=== PATIENT | female | born 1985 | race Caucasian/White ===

== ENCOUNTER 2023-04-10 16:10 | Inpatient (IN) | payer BC, SELFPAY ==
[2023-04-10 15:45] VITALS: BP 115/78; PULSE 89; RESP 16; TEMP 36.6; O2SAT 98
[2023-04-10 15:50] VITALS: O2SAT 98; BMI 23.6
--- NOTE | 2023-04-10 15:56 | ADMGEN ---
This patient, Zuly Phillips, was admitted to [facility] Surg Room 305-01. Patient/family oriented to hospital policies and general routines including ID bracelet, bed and alarms, visiting hours, pain management, procedures, bathroom and other care routines, personal items, smoking policy, room service/diet, and visiting hours. Information on how to activate the Rapid Response Team has been discussed. Patient/Family are encouraged to report perceived risks to care and to ask questions if they do not understand what they are told or what they should do. Pt was direct admit from [facility]. MD and surgery notified.
--- NOTE | 2023-04-10 16:15 | PM.IMHP ---
H&P: HPI History of Present Illness Date/Time: 04/10/23 18:15 Chief Complaint: Cecal diverticulitis. Narrative: This is a healthy 38-year-old female who is being directly admitted to the medical floor for further treatment and evaluation after she was found to have evidence of possible cecal diverticulitis with intramural phlegmon or developing abscess on outpatient CT done for evaluation of right lower abdominal pain. The patient provides the following history. She had an endometrial ablation in 2018 though continues to have monthly menstrual cycles. Over the last 4 months her periods have started to become more heavy and she has an upcoming appointment with Dr. Dutta for that. It is not necessarily unusual for her to have cramping discomfort and a couple of days ago when she developed discomfort in the right lower quadrant she assumed it was related to the same. She also mentions ongoing issues with chronic constipation and she has taken 2 doses of MiraLax in the last couple of days as she was also concerned that perhaps her symptoms were related to constipation. She has passed two, small stools since that time though she continues to have cramping discomfort in the right lower quadrant. Her symptoms are worse with movement and palpation. She has not noticed any significant alleviating factors. She denies associated symptoms and she specifically denies fever, chills, sweats, nausea, vomiting, and dysuria. Last night she slept poorly due to the persistant discomfort and today her symptoms were worse. 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 This prompted a CT scan with results as above. She is being directly admitted for IV antibiotics and surgery consultation. She has no history of diverticulitis and denies personal and family history of inflammatory bowel disease. Review of Systems Review of Systems: Twelve systems were reviewed and are negative except for as per HPI. [facility] Past Medical History Medical History (Updated 04/10/23 @ 22:45 by Tonie Butterfield PA-C) Anxiety Surgical History Surgical History (Updated 04/10/23 @ 16:24 by Tonie Butterfield PA-C) History of section History of endometrial ablation History of tubal ligation Family History Family History Father Diabetes mellitus Hypertension Hypercholesteremia Grandparent Leukemia Grandparent Diabetes mellitus Social History Social History (Updated 04/10/23 @ 18:01 by Tonie Butterfield PA-C) Social History: Surrogate medical decision maker: Juan Phillips, spouse. Code status: Full code. Smoking status: Never smoker Alcohol intake: current Drinks per week: 2 Substance use: never Lack of Transportation: No Lack of Food: Never True Current Housing: I Have Housing Concerned About Future Housing: No Difficulty Paying Gas/Electric Bills: No Difficulty Paying for Meds: No Currently Unemployed: No Education: Decline to Answer Difficulty w/ Childcare or Family Care: No Additional living arrangements comments: Lives with family in [place]. 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 care concerns: No Meds Home Medications and Allergies Home Medications Medication Instructions Recorded Confirmed Type bupropion HCl 150 mg tablet,12 hr 150 mg PO BID 04/10/23 04/10/23 History sustained-release Allergies Allergy/AdvReac Type Severity Reaction Status Date / Time No Known Allergies Allergy Verified 04/10/23 16:05 Exam Narrative: General: Well-developed, nontoxic-appearing female sitting up in bed in no distress. Weight: 66.5 kg. BMI: 23.7. HEENT: PERRL, EOMI. Sclera anicteric. Oral mucosa moist. Neck: Supple. Respiratory: Lungs are clear to auscultation bila
[2023-04-10] MEDS: metroNIDAZOLE 500 MG/ISO 100ML 500 MG/100 ML BAG 100 MG IVPB (17:43)
[2023-04-10] MEDS: SODIUM CHLORIDE 0.9% IV 1,000 ML 100 ML IV CONT (17:46)
[2023-04-10 20:00] VITALS: O2SAT 100
[2023-04-10] MEDS: buPROPion HCL SR (12 HR) 150 MG TAB PO (20:46)
[2023-04-10 21:28] VITALS: BP 110/73; PULSE 72; RESP 14; TEMP 36.4; O2SAT 100
[2023-04-11] MEDS: metroNIDAZOLE 500 MG/ISO 100ML 500 MG/100 ML BAG 100 MG IVPB ×3 (00:33→15:46)
[2023-04-11 06:00] VITALS: BP 113/70; PULSE 79; RESP 14; TEMP 36.5; O2SAT 100
[2023-04-11 06:39] LABS: Hematocrit 37.2 % (37.0-47.0); Hemoglobin 12.1 g/dL (12.0-15.0); Mean Corpuscular HGB Conc 32.5 g/dl (32-36); Mean Corpuscular Hemoglobin 30.7 pg (26-34); Mean Corpuscular Volume 94.4 fl (80-100); Mean Platelet Volume 9.8 fl (7.4-10.4); Platelet Count Result 330 k/mm3 (150-375); Red Blood Count 3.94 M/mm3 (4.2-5.4); Red Cell Distribution Width 11.9 % (11.5-14.5)
[2023-04-11 06:51] LABS: Alanine Aminotransferase 15 U/L (6-35); Albumin Level 3.7 g/dL (3.5-5.1); Alkaline Phosphatase 62 U/L (38-126); Anion Gap 11 mmol/L (8-16); Aspartate Amino Transferase 23 U/L (14-36); Bilirubin,Total 0.7 mg/dL (0.2-1.3); Blood Urea Nitrogen 12 mg/dL (7-17); Calcium 8.5 mg/dL (8.4-10.2); Carbon Dioxide 17 mmol/L (22-30); Chloride 107 mmol/L (98-107); Estimated CRCL calculation 78 ml/min; Estimated Glomerular Filt Rate > 60; Glucose 69 mg/dL (65-110); Potassium 4.1 mmol/L (3.4-5.0); Sodium 135 mmol/L (137-145)
[2023-04-11] MEDS: buPROPion HCL SR (12 HR) 150 MG TAB PO ×2 (09:08→20:39)
[2023-04-11 12:04] LABS: Glucose Point of Care 60 mg/dl (65-105)
[2023-04-11] MEDS: GLUCOSE ORAL GEL 15 GM OF GLUCSE IN 37.5 GM TUBE PO (12:05)
--- NOTE | 2023-04-11 12:48 | PM.IMPN ---
Progress Note: A&P Assessment and Plan (1) Cecal diverticulitis: Code(s): K57.32 - Diverticulitis of large intestine without perforation or abscess without bleeding Status: Acute Assessment and Plan: CT scan showed inflammation of the cecum in the right lower quadrant near the terminal ileum which is nonspecific but may be an area of cecal diverticulitis with intramural phlegmon or developing abscess. She denies history of similar episodes and has no known personal or family history of inflammatory bowel disease. -continue ceftriaxone and metronidazole. -spoke with surgery, will start clear liquid diets -would recommend colonoscopy - Small cluster of lymph nodes in the right lower quadrant most likely related to cecal process though 3 to six-month follow-up CT is recommended. -patient does not have her disc from outside area hospital, spoke with Dr. Rao--no additional images needed at this time (2) Uterine fibroid: Code(s): D25.9 - Leiomyoma of uterus, unspecified Status: Acute Assessment and Plan: Status post endometrial ablation in 2018 however she continues to have monthly menstrual cycles. -Bleeding has been worse the last 4 months. - She has an upcoming appointment with Dr. Dutta. (3) Anxiety: Code(s): F41.9 - Anxiety disorder, unspecified Status: Acute Assessment and Plan: Chronic but controlled. continue home Wellbutrin (4) Hypoglycemia: Code(s): E16.2 - Hypoglycemia, unspecified Status: Acute Assessment and Plan: Patient has been NPO -will order 1 time dose of oral glucose -noted need for dextrose at this time as patient is now going to start clear liquids -spoke with the nurse and will monitor p.r.n. as she does not take any insulin Plan Lovenox for DVT prophylaxis Time Spent With Patient Time with patient: 25 - 35 minutes Subjective Date/time seen: 04/11/23 12:48 Interval history: Pt is a 38-year-old female here for diverticulitis. Patient was seen today and states she is doing well. The pain is less and she has no nausea or vomiting. She has chronic constipation which is unchanged. She denies fevers, chest pain or shortness of breath. Review of Systems Review of Systems: All systems reviewed & are unremarkable except as noted in HPI and below Exam Narrative: General: Well developed well nourished patient in NAD HEENT: normocephalic Neck: supple Neuro: Alert and oriented CV:RRR Resp:CTA Abd: Soft, non distended. Slight pain to palpation to the right lower quadrant. Positive bowel sounds Extremities: No swelling, erythema, or pain to palpation. Objective Data Vital Signs Vital Signs: Vital Signs - 24 hr 04/10/23 15:45 04/10/23 15:50 04/10/23 21:28 Temperature 97.9 F 97.5 F L Pulse Rate 89 72 Respiratory Rate 16 14 Blood Pressure 115/78 110/73 Pulse Oximetry 98 98 100 Oxygen Delivery Room Air 04/10/23 20:00 04/11/23 06:00 Temperature 97.7 F Pulse Rate 79 Respiratory Rate 14 Blood Pressure 113/70 Pulse Oximetry 100 100 Oxygen Delivery Room Air Intake/Output Intake/Output: Intake & Output 04/08/23 04/09/23 04/10/23 04/11/23 23:59 23:59 23:59 23:59 Intake Total 150 1100 Balance 150 1100 Meds/Results Medications: Active Medications Generic Name Dose Route Start Last Admin Trade Name Freq PRN Reason Stop Dose Admin Acetaminophen 650 mg 04/10/23 16:09 Acetaminophen 325 Mg Tablet PO Q4H PRN Mild Pain (1-3) or Fever Hydrocodone Bitart/Acetaminophen 1 tab 04/10/23 16:09 Hydrocodone/Acetaminophen (*Crx) 5-325 Mg Tablet PO Q4H PRN Moderate Pain (4-6) Bupropion HCl 150 mg 04/10/23 21:00 04/11/23 09:08 Bupropion Hcl Sr (12 Hr) 150 Mg Tab PO 150 mg Q12HR J LUIS Administration Dextrose 12.5 gm 04/11/23 11:36 Dextrose 50% 25 Gm/50 Ml Syringe IV PUSH PRN PRN Hypoglycemia Protocol
[2023-04-11 14:00] VITALS: BP 107/74; PULSE 89; RESP 16; TEMP 36.5; O2SAT 100
--- NOTE | 2023-04-11 14:54 | PM.CNGS ---
Assessment and Plan Assessment and plan (1) Cecal diverticulitis: Code(s): K57.32 - Diverticulitis of large intestine without perforation or abscess without bleeding Status: Acute Assessment and Plan: Much improved especially considering she has had less than 24 hours of antibiotic therapy. She is being treated with ceftriaxone and metronidazole. Will continue to monitor labs and clinical exam. Go ahead and start her on clear liquids today. I explained to the patient and her that while this usually does respond to the current treatment, there is the possibility that it could recur or worsen. We would only recommend surgery in the case that this is much worse or repeatedly recurs. I also explained that she would likely need colonoscopy 4 weeks from discharge to exclude the possibility of a neoplasm as the source. All questions were answered. Thank you for asking me to see this patient in consultation. History of Present Illness Consult details Consult date: 04/11/23 Reason for consult: abdominal pain Requesting physician: Tonie Butterfield PA-C Narrative: Patient is a 38-year-old woman who 3 days ago started having some right lower quadrant abdominal pain. 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 She initially thought this was related to menstrual cramps or possibly an ovarian cyst. The pain persisted and she had a CBC. Her white blood cell count was elevated to 12,900. The pain continued to worsen. She had a CT scan as an outpatient of the abdomen pelvis. This showed evidence of potential cecal diverticulitis with phlegmon and possible early intramural abscess. She was admitted to [facility] yesterday afternoon as a direct admission. She has been started on IV antibiotics and has been NPO. Her white blood cell count today is 10,000. She tells me that her pain is much improved. It is nearly gone. She does have a history of chronic constipation. She has never had a pain like this or diverticulitis previously. She is seen now in consultation regarding cecal diverticulitis management. Review of Systems Review of Systems: All systems reviewed & are unremarkable except as noted in HPI and below (HPI and those items noted below) Constitutional: Constitutional: Denies chills and Denies fever(s) Cardiovascular: Cardiovascular: Denies chest pain, Denies diaphoresis, Denies dyspnea and Denies paroxysmal nocturnal dyspnea Respiratory: Respiratory: Denies chest congestion, Denies cough and Denies dyspnea Integumentary/Breasts: Skin/Breast: Denies lesions and Denies rash PMFSH Past Medical History Medical History Anxiety Surgical History Surgical History History of section History of endometrial ablation History of tubal ligation Family History Family History Father Diabetes mellitus Hypertension Hypercholesteremia Grandparent Leukemia Grandparent Diabetes mellitus Social History Social History Social History: Surrogate medical decision maker: Juan Phillips, spouse. Code status: Full code. Smoking status: Never smoker Alcohol intake: current Drinks per week: 2 Substance use: never Lack of Transportation: No Lack of Food: Never True Current Housing: I Have Housing Concerned About Future Housing: No Difficulty Paying Gas/Electric Bills: No Difficulty Paying for Meds: No Currently Unemployed: No Education: Decline to Answer Difficulty w/ Childcare or Family Care: No Additional living arrangements comments: Lives with family in [place]. 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 care concerns: No Meds Home Medications and Allergies Home Medications Medication Instructions
[2023-04-11 16:35] LABS: Glucose Point of Care 93 mg/dl (65-105)
[2023-04-11] MEDS: ACETAMINOPHEN 325 MG TABLET 650 MG PO (21:32)
[2023-04-11 22:00] VITALS: BP 117/77; PULSE 96; RESP 22; TEMP 36.2; O2SAT 100
[2023-04-12] MEDS: metroNIDAZOLE 500 MG/ISO 100ML 500 MG/100 ML BAG 100 MG IVPB ×4 (00:41→23:44)
[2023-04-12 06:00] VITALS: BP 114/81; PULSE 101; RESP 22; TEMP 36.4; O2SAT 99
[2023-04-12 07:29] LABS: Hematocrit 37.7 % (37.0-47.0); Hemoglobin 12.2 g/dL (12.0-15.0); Mean Corpuscular HGB Conc 32.4 g/dl (32-36); Mean Corpuscular Hemoglobin 30.4 pg (26-34); Mean Platelet Volume 9.7 fl (7.4-10.4); Platelet Count Result 352 k/mm3 (150-375); Red Blood Count 4.01 M/mm3 (4.2-5.4); Red Cell Distribution Width 11.9 % (11.5-14.5); White Blood Count 5.7 K/mm3 (4.5-10.0)
[2023-04-12 07:40] LABS: Alanine Aminotransferase 12 U/L (6-35); Albumin Level 3.7 g/dL (3.5-5.1); Alkaline Phosphatase 58 U/L (38-126); Anion Gap 6 mmol/L (8-16); Aspartate Amino Transferase 19 U/L (14-36); Bilirubin,Total 0.6 mg/dL (0.2-1.3); Blood Urea Nitrogen 9 mg/dL (7-17); Carbon Dioxide 22 mmol/L (22-30); Chloride 105 mmol/L (98-107); Estimated CRCL calculation 78 ml/min; Estimated Glomerular Filt Rate > 60; Glucose 101 mg/dL (65-110); Potassium 3.7 mmol/L (3.4-5.0); Sodium 133 mmol/L (137-145)
[2023-04-12] MEDS: buPROPion HCL SR (12 HR) 150 MG TAB PO ×2 (09:09→20:37)
--- NOTE | 2023-04-12 12:22 | PM.PNGS ---
Progress Note: A&P Assessment and Plan (1) Cecal diverticulitis: Code(s): K57.32 - Diverticulitis of large intestine without perforation or abscess without bleeding Status: Acute Assessment and Plan: Improving very well. Patient nearly nontender. Will advance to a low-fiber diet and continue IV antibiotics. Recheck labs and exam tomorrow. If continues to do well can go home tomorrow from my perspective. Subjective Subjective Date/Time Seen: 04/12/23 12:22 Patient reports: feels better, tolerating liquids well, no bowel movement and afebrile Review of Systems Review of Systems: All systems reviewed & are unremarkable except as noted in HPI and below (HPI) Exam Const: General: comfortable, no acute distress, well nourished and thin Orientation/consciousness: patient oriented x3 GI: Inspection: normal to inspection and non-distended GI Palp: Yes Soft to palpation, Yes Tenderness to palpation present (GI) (Minimal right lower quadrant tenderness, much improved), No Guarding due to palpation present (GI), No Hernia present, No Palpable mass present and No Rebound tenderness present Neuro: General: patient oriented x3 and no focal motor deficits Extrem: General: no calf tenderness and no edema Psych: Affect: normal affect Insight: Good insight present (Psych) Judgement: Good judgement present (Psych) Objective Data Vital Signs Vital Signs: Vital Signs - 24 hr 04/11/23 14:00 04/11/23 22:00 04/12/23 06:00 Temperature 36.5 C 36.2 C L 36.4 C L Pulse Rate 89 96 101 H Respiratory Rate 16 22 H 22 H Blood Pressure 107/74 117/77 114/81 Pulse Oximetry 100 100 99 Intake/Output Intake/Output: Intake & Output 04/09/23 04/10/23 04/11/23 04/12/23 23:59 23:59 23:59 23:59 Intake Total 150 2256 1060 Output Total 1600 Balance 350 472 0003 Meds/Results Medications: Active Medications Generic Name Dose Route Start Last Admin Trade Name Freq PRN Reason Stop Dose Admin Acetaminophen 650 mg 04/10/23 16:09 04/11/23 21:32 Acetaminophen 325 Mg Tablet PO 650 mg Q4H PRN Administration Mild Pain (1-3) or Fever Hydrocodone Bitart/Acetaminophen 1 tab 04/10/23 16:09 Hydrocodone/Acetaminophen (*Crx) 5-325 Mg Tablet PO Q4H PRN Moderate Pain (4-6) Bupropion HCl 150 mg 04/10/23 21:00 04/12/23 09:09 Bupropion Hcl Sr (12 Hr) 150 Mg Tab PO 150 mg Q12HR J LUIS Administration Dextrose 12.5 gm 04/11/23 11:36 Dextrose 50% 25 Gm/50 Ml Syringe IV PUSH PRN PRN Hypoglycemia Protocol Enoxaparin Sodium 40 mg 04/12/23 09:00 Enoxaparin 40 Mg/0.4 Ml Syringe SUB-Q DAILY J LUIS Glucagon 1 mg 04/11/23 11:36 Glucagon For Inj 1 Mg Vial IM PRN PRN Hypoglycemia Protocol Glucose 15 gm 04/11/23 11:36 04/11/23 12:05 Glucose Oral Gel 15 Gm Of Glucse In 37.5 Gm Tube PO 15 gm PRN PRN Administration Hypoglycemia Protocol Ceftriaxone Sodium 1 gm in 50 mls @ 100 mls/hr 04/10/23 16:15 04/11/23 12:35 Rocephin 1 Gm/Ns 50 Ml IVPB Infused DAILY@1200 J LUIS Infusion Metronidazole 500 mg in 100 mls @ 100 mls/hr 04/10/23 16:00 04/12/23 10:09 Flagyl 500 Mg/Iso Soln 100 Ml IVPB Infused Q8H J LUIS Infusion Dextrose 1,000 mls @ 100 mls/hr 04/11/23 11:36 Dextrose 5% 1,000 Ml IVPB PRN PRN Hypoglycemia Protocol Morphine Sulfate 2 mg 04/10/23 16:09 Morphine Sulfate (*Crx) 2 Mg/Ml Inj IV PUSH Q4H PRN Pain Rated 7-10 Labs Labs: Laboratory Results - last 24 hr 04/11/23 04/12/23 16:30 06:55 WBC 5.7 RBC 4.01 L Hgb 12.2 Hct 37.7 MCV 94.0 MCH 30.4 MCHC 32.4 RDW 11.9 Plt Count 352 MPV 9.7 Sodium 133 L Potassium 3.7 Chloride 105 Carbon Dioxide 22 Anion Gap 6 L BUN 9 Creatinine 0.80 Estim Creat Clear Calc 78 Estimated GFR > 60 Glucose 101 POC Capillary Glucose 93 Calcium 9.0 Total Bilirubin 0.6 AST 19 ALT
[2023-04-12 14:00] VITALS: BP 111/83; PULSE 87; RESP 16; TEMP 36.5; O2SAT 99
--- NOTE | 2023-04-12 14:07 | PM.IMPN ---
Progress Note: A&P Assessment and Plan (1) Cecal diverticulitis: Code(s): K57.32 - Diverticulitis of large intestine without perforation or abscess without bleeding Status: Acute Assessment and Plan: CT scan showed inflammation of the cecum in the right lower quadrant near the terminal ileum which is nonspecific but may be an area of cecal diverticulitis with intramural phlegmon or developing abscess. She denies history of similar episodes and has no known personal or family history of inflammatory bowel disease. -continue ceftriaxone and metronidazole, will transition to PO tomorrow in anticipation for d/c -advanced from clears to low fiber diet -recommend colonoscopy in 4 weeks, Jalen to help refer to GI - Small cluster of lymph nodes in the right lower quadrant most likely related to cecal process though 3 to six-month follow-up CT is recommended. -patient does not have her disc from outside area hospital, spoke with Dr. Rao--no additional images needed at this time (2) Uterine fibroid: Code(s): D25.9 - Leiomyoma of uterus, unspecified Status: Acute Assessment and Plan: Status post endometrial ablation in 2018 however she continues to have monthly menstrual cycles. -Bleeding has been worse the last 4 months. -She has an upcoming appointment with Dr. Dutta. (3) Anxiety: Code(s): F41.9 - Anxiety disorder, unspecified Status: Acute Assessment and Plan: Chronic but controlled. continue home Wellbutrin (4) Hypoglycemia: Code(s): E16.2 - Hypoglycemia, unspecified Status: Acute Assessment and Plan: resolved with diet intake Plan Lovenox for DVT prophylaxis Subjective Date/time seen: 04/12/23 14:07 Interval history: Pt is a 38 YO female here for diverticulitis. Patient is sitting up in bed, reports she is comfortable. She has been tolerating clears and felt hungry this morning. Advanced diet to low fiber and will see how she tolerates. She has no nausea or vomiting. She has chronic constipation which is unchanged. She denies fevers, chest pain or shortness of breath. Would have sent her home with PO Flagyl and Augmentin today, but will see how she does overnight on diet changes and repeat labs in am per SURG. Review of Systems Review of Systems: All systems reviewed & are unremarkable except as noted in HPI and below Exam Narrative: General: Well developed well nourished patient in NAD HEENT: normocephalic, EOM intact and PERRLA Neck: supple, no masses or lymph nodes palp Neuro: Alert and oriented x3. no focal deficits CV:RRR Resp:clear and present in all lobes Abd: Soft, non distended. Slight pain to palpation to the right lower quadrant. Positive bowel sounds Extremities: No swelling, erythema, or pain to palpation. Objective Data Vital Signs Vital Signs: Vital Signs - 24 hr 04/11/23 22:00 04/12/23 06:00 Temperature 97.1 F L 97.5 F L Pulse Rate 96 101 H Respiratory Rate 22 H 22 H Blood Pressure 117/77 114/81 Pulse Oximetry 100 99 Intake/Output Intake/Output: Intake & Output 04/09/23 04/10/23 04/11/23 04/12/23 23:59 23:59 23:59 23:59 Intake Total 150 2256 1300 Output Total 1600 Balance 581 391 1410 Meds/Results Medications: Active Medications Generic Name Dose Route Start Last Admin Trade Name Freq PRN Reason Stop Dose Admin Acetaminophen 650 mg 04/10/23 16:09 04/11/23 21:32 Acetaminophen 325 Mg Tablet PO 650 mg Q4H PRN Administration Mild Pain (1-3) or Fever Hydrocodone Bitart/Acetaminophen 1 tab 04/10/23 16:09 Hydrocodone/Acetaminophen (*Crx) 5-325 Mg Tablet PO Q4H PRN Moderate Pain (4-6) Bupropion HCl 150 mg 04/10/23 21:00 04/12/23 09:09 Bupropion Hcl Sr (12 Hr) 150 Mg Tab PO 150 mg Q12HR J LUIS Administration Dextrose 12.5 gm 04/11/23 11:36 Dextrose 50% 25 Gm/50 Ml Syringe IV PUSH PRN PRN Hypoglycemia
[2023-04-12 20:00] VITALS: O2SAT 99
[2023-04-12 22:00] VITALS: BP 108/83; PULSE 76; RESP 20; TEMP 36; O2SAT 99
[2023-04-13 06:00] VITALS: BP 111/80; PULSE 89; RESP 20; TEMP 36.4; O2SAT 99
[2023-04-13 06:47] LABS: Hematocrit 38.3 % (37.0-47.0); Hemoglobin 12.3 g/dL (12.0-15.0); Mean Corpuscular HGB Conc 32.1 g/dl (32-36); Mean Corpuscular Hemoglobin 30.1 pg (26-34); Mean Corpuscular Volume 93.9 fl (80-100); Mean Platelet Volume 9.8 fl (7.4-10.4); Platelet Count Result 367 k/mm3 (150-375); Red Blood Count 4.08 M/mm3 (4.2-5.4); Red Cell Distribution Width 11.9 % (11.5-14.5); White Blood Count 5.9 K/mm3 (4.5-10.0)
[2023-04-13] MEDS: metroNIDAZOLE 500 MG/ISO 100ML 500 MG/100 ML BAG 100 MG IVPB (09:37)
[2023-04-13] MEDS: buPROPion HCL SR (12 HR) 150 MG TAB PO (09:37)
--- NOTE | 2023-04-13 10:15 | PM.PNGS ---
Progress Note: A&P Assessment and Plan (1) Cecal diverticulitis: Code(s): K57.32 - Diverticulitis of large intestine without perforation or abscess without bleeding Status: Acute Assessment and Plan: Continues to improve. No abdominal pain or tenderness this morning. Okay from our standpoint to discharge the patient on a low fiber diet and transition to oral antibiotics for another 5 days. Follow-up with Dr. Rao in 2 weeks. Plan I have discussed the patient's case and plan of care with Dr. Rao. Subjective Subjective Date/Time Seen: 04/13/23 10:15 Patient reports: tolerating a regular diet, flatus, bowel movement and afebrile Interval history: This is a 38-year-old who was admitted for cecal diverticulitis. She has been on IV antibiotics and her diet has been advanced to low-fiber. Chart reviewed. Seen this morning and doing well. Denies any abdominal pain at this time. Denies any issues overnight. No nausea or vomiting. Tolerating a diet and having bowel movements. Exam Const: General: comfortable and awake GI: Inspection: non-distended GI Palp: Yes Soft to palpation, No Tenderness to palpation present (GI), No Guarding due to palpation present (GI) and No Rebound tenderness present Auscultation: normal bowel sounds Objective Data Vital Signs Vital Signs: Vital Signs - 24 hr 04/12/23 14:00 04/12/23 22:00 04/12/23 20:00 Temperature 97.7 F 96.8 F L Pulse Rate 87 76 Respiratory Rate 16 20 Blood Pressure 111/83 108/83 Pulse Oximetry 99 99 99 Oxygen Delivery Room Air 04/13/23 06:00 04/13/23 08:00 Temperature 97.5 F L Pulse Rate 89 Respiratory Rate 20 Blood Pressure 111/80 Pulse Oximetry 99 Oxygen Delivery Room Air Intake/Output Intake/Output: Intake & Output 04/10/23 04/11/23 04/12/23 04/13/23 23:59 23:59 23:59 23:59 Intake Total 150 2256 1690 500 Output Total 1600 Balance 229 533 8840 500 Meds/Results Medications: Active Medications Generic Name Dose Route Start Last Admin Trade Name Freq PRN Reason Stop Dose Admin Acetaminophen 650 mg 04/10/23 16:09 04/11/23 21:32 Acetaminophen 325 Mg Tablet PO 650 mg Q4H PRN Administration Mild Pain (1-3) or Fever Hydrocodone Bitart/Acetaminophen 1 tab 04/10/23 16:09 Hydrocodone/Acetaminophen (*Crx) 5-325 Mg Tablet PO Q4H PRN Moderate Pain (4-6) Bupropion HCl 150 mg 04/10/23 21:00 04/13/23 09:37 Bupropion Hcl Sr (12 Hr) 150 Mg Tab PO 150 mg Q12HR J LUIS Administration Dextrose 12.5 gm 04/11/23 11:36 Dextrose 50% 25 Gm/50 Ml Syringe IV PUSH PRN PRN Hypoglycemia Protocol Enoxaparin Sodium 40 mg 04/12/23 09:00 04/13/23 09:52 Enoxaparin 40 Mg/0.4 Ml Syringe SUB-Q Not Given DAILY J LUIS Glucagon 1 mg 04/11/23 11:36 Glucagon For Inj 1 Mg Vial IM PRN PRN Hypoglycemia Protocol Glucose 15 gm 04/11/23 11:36 04/11/23 12:05 Glucose Oral Gel 15 Gm Of Glucse In 37.5 Gm Tube PO 15 gm PRN PRN Administration Hypoglycemia Protocol Ceftriaxone Sodium 1 gm in 50 mls @ 100 mls/hr 04/10/23 16:15 04/12/23 13:11 Rocephin 1 Gm/Ns 50 Ml IVPB Infused DAILY@1200 J LUIS Infusion Metronidazole 500 mg in 100 mls @ 100 mls/hr 04/10/23 16:00 04/13/23 09:37 Flagyl 500 Mg/Iso Soln 100 Ml IVPB 100 mls/hr Q8H J LUIS Administration Dextrose 1,000 mls @ 100 mls/hr 04/11/23 11:36 Dextrose 5% 1,000 Ml IVPB PRN PRN Hypoglycemia Protocol Morphine Sulfate 2 mg 04/10/23 16:09 Morphine Sulfate (*Crx) 2 Mg/Ml Inj IV PUSH Q4H PRN Pain Rated 7-10 Labs Labs: Laboratory Results - last 24 hr 04/13/23 06:21 WBC 5.9 RBC 4.08 L Hgb 12.3 Hct 38.3 MCV 93.9 MCH 30.1 MCHC 32.1 RDW 11.9 Plt Count 367 MPV 9.8 Sodium Cancelled Potassium Cancelled Chloride Cancelled Carbon Dioxide Cancelled Anion Gap Cancelled BUN Cancelled Creatinine Cancelled Estim Creat Cl
--- NOTE | 2023-04-13 10:35 | PM.DS ---
DS: Admitting Diagnosis Discharge Date 04/13/23 Admitting Diagnosis anxiety, abdominal pain DS: Discharge Diagnosis Discharge Diagnosis (1) Cecal diverticulitis: Code(s): K57.32 - Diverticulitis of large intestine without perforation or abscess without bleeding Status: Acute Assessment and Plan: CT scan showed inflammation of the cecum in the right lower quadrant near the terminal ileum which is nonspecific but may be an area of cecal diverticulitis with intramural phlegmon or developing abscess. She denies history of similar episodes and has no known personal or family history of inflammatory bowel disease. -continue ceftriaxone and metronidazole, will transition to PO tomorrow in anticipation for d/c -tolerating low fiber diet, will go home on low fiber diet recommendations -recommend colonoscopy in 4 weeks, Jalen to help refer to GI - Small cluster of lymph nodes in the right lower quadrant most likely related to cecal process though 3 to six-month follow-up CT is recommended. -patient does not have her disc from outside area hospital, spoke with Dr. Rao--no additional images needed at this time (2) Uterine fibroid: Code(s): D25.9 - Leiomyoma of uterus, unspecified Status: Acute Assessment and Plan: Status post endometrial ablation in 2018 however she continues to have monthly menstrual cycles. -Bleeding has been worse the last 4 months. -She has an upcoming appointment with Dr. Dutta. (3) Anxiety: Code(s): F41.9 - Anxiety disorder, unspecified Status: Acute Assessment and Plan: Chronic but controlled. continue home Wellbutrin (4) Hypoglycemia: Code(s): E16.2 - Hypoglycemia, unspecified Status: Acute Assessment and Plan: resolved with diet intake Plan Lovenox for DVT prophylaxis DS: Summary Hospital Course Reason for hospitalization: abdominal pain Hospital Course: Healthy 38 YO female admitted further treatment and evaluation after she was found to have evidence of possible cecal diverticulitis with intramural phlegmon or developing abscess on outpatient CT done for evaluation of right lower abdominal pain. The patient provides the following history. She had an endometrial ablation in 2018 though continues to have monthly menstrual cycles. Over the last 4 months her periods have started to become more heavy and she has an upcoming appointment with Dr. Dutta for that. It is not necessarily unusual for her to have cramping discomfort and a couple of days ago when she developed discomfort in the right lower quadrant she assumed it was related to the same. She also mentions ongoing issues with chronic constipation and she has taken 2 doses of MiraLax in the last couple of days as she was also concerned that perhaps her symptoms were related to constipation. She has passed two, small stools since that time though she continues to have cramping discomfort in the right lower quadrant. Her symptoms are worse with movement and palpation. She was admitted for IV antibiotics and surgery consultation. She has no history of diverticulitis and denies personal and family history of inflammatory bowel disease. Today patient is sitting up in bed, reports she is comfortable without pain. She has been tolerating low fiber diet with no issues. She has no nausea or vomiting.? She has chronic constipation which is unchanged.? She denies fevers, chest pain or shortness of breath. Will send her home PO Flagyl and Augmentin today, she knows to follow up in [address] Rao and in 4 weeks for colonoscopy with GI. Status at Discharge Functional status at discharge: independent ambulation Overall status at discharge: patient is back to baseline Time Spent with Patient Time attestation: Total time spent providing and/or coordinating discharge services: Exam Narrative: General: Well developed well nourished patient in NAD HEENT: fuadocepBecky alcantara
== END 2023-04-13 11:00 | disposition home or self-care (01) | DRG 392 ==
PROVIDERS: Physician Assistant; Surgery; Admitting Provider Internal Medicine; Visit Provider Nurse Practitioner
DX: K57.20 Diverticulitis of large intestine with perforation and abscess without bleeding (principal); D25.9 Leiomyoma of uterus, unspecified; F41.9 Anxiety disorder, unspecified; E16.2 Hypoglycemia, unspecified; K59.00 Constipation, unspecified
CPT/HCPCS: 36415; 80048; 80053; 82948; 83735; 85027; 96361; 96365; 96366; 96367; A9270; G0378; G0379; J0696; J1650; J1836; J7030

== ENCOUNTER 2023-06-02 02:18 | Day surgery (SDC) | payer BC, SELFPAY ==
[2023-05-14 13:53] VITALS: BMI 23.4
--- NOTE | 2023-05-29 10:43 | SUR.PREOP ---
Patient called regarding upcoming procedure. Message left on pt's voicemail regarding appointment times.
[2023-06-02 11:09] VITALS: BP 113/80; PULSE 83; RESP 16; TEMP 36.6; O2SAT 100
[2023-06-02] MEDS: LACTATED RINGERS 1,000 ML 150 ML IV CONT (11:20)
--- NOTE | 2023-06-02 11:28 | P.PNAN_ITS ---
Anes - Initial Pre Proc Eval Procedure: Operation Date: 06/02/23 12:30 Proposed Procedures p Colonoscopy - Armando Lau MD Date/Time: 06/02/23 11:28 Surgeon: Armando Lau MD Pre Op Diagnosis: Cecal Diverticulitis Patient Data Age: 38 Gender: F Height: 1.68 m Weight: 65.8 kg Last Vital Signs Temp 36.6 C 06/02/23 11:09 Pulse 83 06/02/23 11:09 Resp 16 06/02/23 11:09 BP 113/80 06/02/23 11:09 Pulse Ox 100 06/02/23 11:09 O2 Del Method Room Air 06/02/23 11:09 Allergies Allergy/AdvReac Type Severity Reaction Status Date / Time No Known Allergies Allergy Verified 06/02/23 11:08 Home Medications Medication Instructions Recorded Confirmed Type bupropion HCl 150 mg tablet,12 hr 150 mg PO BID 04/10/23 05/14/23 History sustained-release Patient hx anesthesia problems: none Family hx anesthesia problems: none Results Review: All pre-operative results and documents have been reviewed as part of the pre- operative evaluation. [facility] Past Medical History Medical History Anxiety Surgical History Surgical History History of section History of endometrial ablation History of tubal ligation Family History Family History Father Diabetes mellitus Hypertension Hypercholesteremia Grandparent Leukemia Grandparent Diabetes mellitus Social History Social History Social History: Surrogate medical decision maker: Juan Alan, spouse. Code status: Full code. Smoking status: Never smoker Alcohol intake: current Drinks per week: 2 Substance use: never Substance use type: does not use Lack of Transportation: No Lack of Food: Never True Current Housing: I Have Housing Concerned About Future Housing: No Difficulty Paying Gas/Electric Bills: No Difficulty Paying for Meds: No Currently Unemployed: No Education: Decline to Answer Difficulty w/ Childcare or Family Care: No Living arrangements: with family Additional living arrangements comments: Lives with family in [place]. 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 care concerns: No Anes - Eval Final PreProcedure Day of Procedure 06/02/23 11:28 Patient weight: normal Heart: regular rate and rhythm Lungs: clear to auscultation and normal air movement Airway: Mallampati scale class II Neurological: alert and oriented Last oral intake: >/= 8 hours ASA classification: II Emergent: no Anesthetic plan: proceed Anesthesia type and monitoring: general GIVS and standard monitoring Results Review: All pre-operative results and documents have been reviewed as part of the pre-operative evaluation. Informed Consent: The patient's anesthetic plan and its attendant risks and benefits were discussed with the patient/family/POA. Questions were solicited and answers provided to the satisfaction of the patient/family/POA.
--- NOTE | 2023-06-02 12:18 | PM.HPGS ---
History of Present Illness History of Present Illness Consent: Risks, benefits, and alternatives have been discussed and questions answered. Patient agrees to proceed with procedure. Chief complaint: Cecal Diverticulitis Narrative: Zuly Phillips is a 38 year old female with cecal diverticulitis treated medically, never had colonoscopy Review of Systems Constitutional: Constitutional: Denies headache(s) and Denies weakness Eyes: Eyes: Denies blurry vision ENT: Reports Normal hearing present, Denies headache(s) and Denies neck pain Cardiovascular: Cardiovascular: Denies chest pain and Denies dyspnea Respiratory: Respiratory: Denies dyspnea Gastrointestinal: Gastrointestinal: Reports no additional gastrointestinal complaints Genitourinary: Genitourinary: Denies dysuria Musculoskeletal: Musculoskeletal: Denies neck pain Integumentary/Breasts: Skin/Breast: Denies dry skin Neurologic: Reports Normal hearing present, Denies headache(s) and Denies weakness Psychiatric: Psychiatric: Denies anxiety Endocrine: Endocrine: Denies change in body appearance Hematologic/Lymphatic: Hematologic/Lymphatic: Denies easy bleeding Allergic/Immunologic: Allergic/Immunologic: Denies urticaria PMFSH Past Medical History Medical History Anxiety Surgical History Surgical History History of section History of endometrial ablation History of tubal ligation Family History Family History Father Diabetes mellitus Hypertension Hypercholesteremia Grandparent Leukemia Grandparent Diabetes mellitus Social History Social History Social History: Surrogate medical decision maker: Juan Phillips, spouse. Code status: Full code. Smoking status: Never smoker Alcohol intake: current Drinks per week: 2 Substance use: never Substance use type: does not use Lack of Transportation: No Lack of Food: Never True Current Housing: I Have Housing Concerned About Future Housing: No Difficulty Paying Gas/Electric Bills: No Difficulty Paying for Meds: No Currently Unemployed: No Education: Decline to Answer Difficulty w/ Childcare or Family Care: No Living arrangements: with family Additional living arrangements comments: Lives with family in [place]. 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 care concerns: No Meds Home Medications and Allergies Home Medications Medication Instructions Recorded Confirmed Type bupropion HCl 150 mg tablet,12 hr 150 mg PO BID 04/10/23 05/14/23 History sustained-release Allergies Allergy/AdvReac Type Severity Reaction Status Date / Time No Known Allergies Allergy Verified 06/02/23 11:08 Vital Signs Vital Signs - 24 hr 06/02/23 11:09 Temperature 97.8 F Pulse Rate 83 Respiratory Rate 16 Blood Pressure 113/80 Pulse Oximetry 100 Oxygen Delivery Room Air Exam Const: General: comfortable and no acute distress HENMT: Face/Nose/Sinus: Normal nares present Eyes: General: appearance normal, both eyes and all related structures Neck: Neck: no JVD Resp: Auscultation: clear to auscultation bilaterally Cardio: Rate: regular rate Rhythm: regular rhythm GI: Inspection: non-distended GI Palp: Yes Soft to palpation Skin: General skin exam: normal color Neuro: General: gait normal Speech: normal speech Extrem: General: normal to inspection Psych: Mental Status: mental status grossly normal Assessment and Plan Assessment and plan (1) Cecal diverticulitis: Code(s): K57.32 - Diverticulitis of large intestine without perforation or abscess without bleeding Status: Acute Assessment and Plan: colonoscopy
[2023-06-02 12:35] VITALS: BP 98/67; PULSE 68; RESP 22; O2SAT 100
[2023-06-02 12:45] VITALS: BP 104/72; PULSE 59; RESP 15; O2SAT 100
[2023-06-02 12:55] VITALS: BP 108/81; PULSE 62; RESP 15; O2SAT 100
== END 2023-06-02 13:00 | disposition home or self-care (01) ==
PROVIDERS: Visit Provider Internal Medicine Gastroenterology
PROC: 0DJD8ZZ Inspection of Lower Intestinal Tract, Via Natural or Artificial Opening Endoscopic (ICD-10-PCS; CPT 45378; principal; 2023-06-02 12:30)
DX: D12.4 Benign neoplasm of descending colon (principal); K57.30 Diverticulosis of large intestine without perforation or abscess without bleeding; F41.9 Anxiety disorder, unspecified; F10.90 Alcohol use, unspecified, uncomplicated
CPT/HCPCS: 45385; 88305; J2704; J7120

== ENCOUNTER 2024-05-17 14:27 | Outpatient (CLI) | payer BC, SELFPAY | END 2024-05-17 14:28 | disposition home or self-care (01) | PROVIDERS: Visit Provider Obstetrics & Gynecology | DX: D21.9 Benign neoplasm of connective and other soft tissue, unspecified (principal) | CPT/HCPCS: 36415; 86850; 86900; 86901 ==

== ENCOUNTER 2024-05-20 00:35 | Day surgery (SDC) | payer BC, SELFPAY ==
[2024-05-09 14:23] VITALS: BMI 23.9
--- NOTE | 2024-05-09 14:39 | SUR.PREOP ---
Report to the Outpatient Waiting Room, entrance under the green pavilion located off [facility], at time 6:00AM on date 05/20/2024. Planned Procedure Time:7:30AM.? Time changes happen often and if your time is changed the preop area will call you the afternoon before. - You and your visitor will be asked to self-screen and do not enter if you have any COVID symptoms. Please call surgeon if you need to reschedule. - A mask is optional within the hospital at this time. Patients may have clear liquids (water, carbonated beverages, clear teas, apple juice) until 3 hours prior to surgery with a maximum of 20 ounces. - No food from midnight until time of surgery and no smoking. This includes no chewing gum, candy or mints. - Infants may have breast milk until 4 hours before surgery, formula 6 hours prior to surgery. - Children will be allowed to drink immediately following surgery.? If applicable, please bring a bottle or sippy cup to assist with drinking. Juice, water, soda, and popsicles are readily available.? For infants on formula, please bring formula the day of surgery.? Pacifiers are allowed. Take only the following medications with a SIP of water on the morning of surgery: WELLBUTRIN DO NOT STOP ANY OF YOUR OTHER PRESCRIPTION MEDICATIONS PRIOR TO SURGERY EXCEPT THE FOLLOWING Medications to discontinue per physician MULTI VITAMIN- 3 DAYS Date to take last dose 05/17/2024 Please no make-up, nail montenegrin, hairspray, perfume, deodorant, or body powder the day of surgery.? No jewelry (including any body piercings) or valuables the day of surgery, leave them at home.? Please take a shower or bath the night before, or the morning of, surgery with an antibacterial soap.? Wear comfortable, loose fitting clothing.? Children are encouraged to wear pajamas. - Jewelry must be removed prior to entering the operating room.? Rings and piercings that are not removed may be cut off. - The hospital will not accept responsibility for valuables.? - Please leave all valuables, including medications, at home the day of surgery. If you are going home after surgery, a licensed front load trash truck driver must drive you home.? - NO public transportation without another adult if you receive anesthesia. - We recommend that an adult stay with you for 24 hours following discharge. - We also recommend that you do not drive, make important decision, drink alcoholic beverages, or take any drugs that were not prescribed by your health care provider for at least 24 hours after your discharge time. For Pediatric surgeries, we recommend two adults accompany the child home. Follow any additional instructions given to you from your surgeon. Telephone instructions given to ____PATIENT and asked if any additional questions and then verbalized understanding. Patient advised to call surgeon office or pre surgery nurse liaison [phone] if any additional questions.
[2024-05-20] VITALS (9 sets, daily range): BP systolic 94–121; BP diastolic 61–73; PULSE 73–110; RESP 12–99; TEMP 36.2–37.2; O2SAT 96–100
[2024-05-20] MEDS: LACTATED RINGERS 1,000 ML 30 ML IV CONT ×2 (06:45→10:40)
[2024-05-20] MEDS: KETOROLAC 15 MG/ML VIAL (*BKC) IV PUSH (07:30)
[2024-05-20] MEDS: ACETAMINOPHEN 500 MG TABLET 1000 MG PO ×3 (07:30→18:50)
--- NOTE | 2024-05-20 07:44 | PM.IMHP ---
H&P: HPI History of Present Illness Date/Time: 05/20/24 07:44 Chief Complaint: Heavy periods Narrative: 39 y/o witih menometrorrhagia and a fibroid uterus. She has menses every 22 days with painful, heavy flow. She has had a tubal ligation. She has had an endometrial ablation, which initially helped, but periods have gradually gotten heavier. She desires definitive management. Review of Systems Review of Systems: All systems reviewed & are unremarkable except as noted in HPI and below PMFSH Past Medical History Medical History (Updated 05/20/24 @ 07:47 by Alan De Jesus MD) Anxiety Uterine fibroid Surgical History Surgical History History of section History of endometrial ablation History of tubal ligation Family History Family History Father Diabetes mellitus Hypertension Hypercholesteremia Grandparent Leukemia Grandparent Diabetes mellitus Social History Social History Social History: Surrogate medical decision maker: Juan Phillips, spouse. Code status: Full code. Smoking status: Never smoker Alcohol intake: current Drinks per week: 2 Alcohol use details: 2 drinks every couple weeks Substance use: never Substance use type: does not use Lack of Transportation: No Lack of Food: Never True Current Housing: I Have Housing Concerned About Future Housing: No Difficulty Paying Gas/Electric Bills: No Difficulty Paying for Meds: No Currently Unemployed: No Education: Decline to Answer Difficulty w/ Childcare or Family Care: No Living arrangements: with family Additional living arrangements comments: Lives with family in [place]. 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 Neck: Thyroid: thyroid normal Lymphatic: no lymphadenopathy noted (in neck, axilla or inguinal nodes) Resp: Effort & Inspection: normal respiratory effort Auscultation: clear to auscultation bilaterally Cardio: Rate: regular rate Rhythm: regular rhythm Heart sounds: S1 normal heart sound present and S2 normal heart sound present GI: Other: ABD: Soft, nontender, nondistended. No guarding or rebound tenderness. No hepatosplenomegaly. : General: Yes no CVA tenderness Other: External genitalia: normal female hair distribution, without lesion. Urethral meatus: no lesion, non prolapsed. Bladder: no mass, nontender Vagina: well-estrogenized, without lesion or discharge. No cystocele or rectocele. Cervix: no lesion or discharge. Uterus: small, anteverted, freely mobile, nontender Adnexa: no mass or tenderness. Anus/perineum: no lesions, nontender Back/Spine/Pelvis: Back: no CVA tenderness Skin: General skin exam: normal color and no rashes or lesions noted Neuro: General: patient oriented x3 Extrem: Other: Extremities: nontender with no edema Psych: Mental Status: mental status grossly normal Affect: normal affect Assessment and Plan Assessment and plan (1) Menometrorrhagia: Code(s): N92.1 - Excessive and frequent menstruation with irregular cycle Status: Acute Assessment and Plan: A: Symptomatic fibroid uterus, refractory to conservative management. P: We have reviewed medical as well as surgical approaches, and she desires definitive management with hysterectomy. Specifically, I have offered her robotic assisted total vaginal hysterectomy with bilateral salpingectomies. She understands hysterectomy will render her permanently sterile. She understands risks of surgery to include risks of anesthesia, risks of pain, infection, bleeding, blood products, thromboembolic phenomena and damage to adjacent structures such as bowel, bladder, ureters, blood vessels and nerves. She understands all these risks and elects to proceed with surgery. (2) Dysmenorrhea: Code(s): N94.6 - Dysmenorrhea, unspecified Status: Acute (3) Uterine fibroid: Code(s): D25.9 - Leiomyoma of uterus, unspecified Status: Acute
--- NOTE | 2024-05-20 07:49 | WPDHPUPDATE1 ---
History and Physical Update Update Date/Time: 05/20/24 07:49 History and Physical has been reviewed, including an updated exam of the patient. There are NO changes in the patient's condition. Risks, benefits, and alternatives have been discussed and questions answered. Patient agrees to proceed with procedure.
--- NOTE | 2024-05-20 08:01 | WPDANESEPPF ---
Anes - Initial Pre Proc Eval Procedure: Operation Date: 05/20/24 07:30 Proposed Procedures p Robotic Assisted Total Vaginal Hysterectomy with Bilateral Salpingectomy - Alan De Jesus MD Date/Time: 05/20/24 08:01 Surgeon: Alan De Jesus MD Pre Op Diagnosis: heavy excessive bleeding, fibroids, Patient Data Age: 39 Gender: F Height: 1.68 m Weight: 67.27 kg Allergies Allergy/AdvReac Type Severity Reaction Status Date / Time No Known Allergies Allergy Verified 05/09/24 14:22 Home Medications Medication Instructions Recorded Confirmed Type bupropion HCl 150 mg tablet,12 hr 150 mg PO BID 04/10/23 05/09/24 History sustained-release Adult One Daily Multivitamin See Rx Instructions .Route .COMPLEX 05/09/24 05/09/24 History Patient hx anesthesia problems: none Family hx anesthesia problems: none Results Review: All pre-operative results and documents have been reviewed as part of the pre-operative evaluation. [facility] Past Medical History Medical History Anxiety Uterine fibroid Surgical History Surgical History History of section History of endometrial ablation History of tubal ligation Family History Family History Father Diabetes mellitus Hypertension Hypercholesteremia Grandparent Leukemia Grandparent Diabetes mellitus Social History Social History Social History: Surrogate medical decision maker: Juan Phillips, spouse. Code status: Full code. Smoking status: Never smoker Alcohol intake: current Drinks per week: 2 Alcohol use details: 2 drinks every couple weeks Substance use: never Substance use type: does not use Lack of Transportation: No Lack of Food: Never True Current Housing: I Have Housing Concerned About Future Housing: No Difficulty Paying Gas/Electric Bills: No Difficulty Paying for Meds: No Currently Unemployed: No Education: Decline to Answer Difficulty w/ Childcare or Family Care: No Living arrangements: with family Additional living arrangements comments: Lives with family in [place]. 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 Informed Consent: The patient's anesthetic plan and its attendant risks and benefits were discussed with the patient/family/POA. Questions were solicited and answers provided to the satisfaction of the patient/family/POA.
[2024-05-20] MEDS: ceFAZolin 2 GM/D5W 50 ML 2 GM/50 ML BAG IVPB (09:40)
--- NOTE | 2024-05-20 10:21 | W.PM.PROC2 ---
Procedure Note - Detailed Date of Procedure 05/20/24 Pre-op Diagnosis Menometrorrhagia Fibroid uterus Post-op Diagnosis Same Procedure Performed Robotic assisted total vaginal hysterectomy with bilateral salpingectomies Surgeon Alan De Jesus MD Anesthesia General Findings Bilateral Fallopian tubes with evidence of prior tubal ligation. Uterus enlarged. Otherwise, unremarkable uterus, tubes and ovaries, anterior and posterior cul-de-sac, and bilateral uterosacral and round ligaments. Description of Procedure The patient was taken to the operating room where general endotracheal anesthesia was administered. She was prepared and draped in the usual sterile fashion in the dorsal lithotomy position. The bladder was drained with Olsen catheter. The cervix was visualized and the anterior lip was grasped using a single-tooth tenaculum. The cervix was gently dilated using Hegar dilators. The MINI 2 uterine manipulator was then placed and the tenaculum was removed. Gloves were changed and attention was turned to the abdomen. A supraumbilical skin incision was made with the scalpel. The Veress needle was advanced and pneumoperitoneum was administered using carbon dioxide gas. The bladeless trocar was then advanced. Intraperitoneal placement was confirmed using the laparoscope. Lateral ports and an administrative assistant office manager port were all placed using bladeless trocars under direct laparoscopic visualization. She was placed in Trendelenburg position and the patient cart was docked. I assumed the console. The ureters were visualized bilaterally. The round ligament on the right was divided. The tube was dissected off the ovary. The uteroovarian ligament was divided. The broad ligament was divided, skeletonizing the uterine artery on the right. The bladder was reflected away. The left side was similarly dissected. Colpotomy was performed circumferentially. The specimen was removed and passed off to be sent to pathology. The vaginal cuff was reapproximated using 0 Vicryl in interrupted [id number] fashion. The pelvis was irrigated copiously using warmed normal saline. Rigorous hemostasis was assured. Surgicel powder was applied to the vaginal cuff. The pedicles were inspected once again, and both ureters were seen to vermiculate. The ports were then withdrawn and the gas was allowed to escape. The skin incisions were reapproximated using 4 0 Monocryl in interrupted subcuticular fashion. Dermaflex was applied externally. Sponge, lap, needle and instrument counts were correct. The patient was awakened and taken to the recovery room in stable condition. I was present and scrubbed through the entire procedure. Estimated Blood Loss 50 Drains Yes (Olsen) Packing No Pathology Yes (Uterus, cervix, bilateral Fallopian tubes) Complications None Condition Stable Disposition PACU
--- NOTE | 2024-05-20 10:25 | PM.DS ---
DS: Admitting Diagnosis Discharge Date 05/21/24 Admitting Diagnosis Menometrorrhagia Dysmenorrhea Fibroid uterus DS: Discharge Diagnosis Discharge Diagnosis (1) Uterine fibroid: Code(s): D25.9 - Leiomyoma of uterus, unspecified Status: Acute (2) Dysmenorrhea: Code(s): N94.6 - Dysmenorrhea, unspecified Status: Acute (3) Menometrorrhagia: Code(s): N92.1 - Excessive and frequent menstruation with irregular cycle Status: Acute DS: Summary Hospital Course Hospital Course: She was admitted for scheduled surgery. Please see op note. Postoperatively, she did well. The lacy was removed and she voided. She tolerated a regular diet. Pain was well controlled. She was able to go home on POD1. Time Spent with Patient Time attestation: Total time spent providing and/or coordinating discharge services: DS: Data Data Completed and Pending Pending studies at discharge: Pending at discharge 05/20/24 09:59 Surgical [PTH] Routine Discharge Plan Discharge Patient Disposition: Home, Self-Care Discharge Instructions: Nothing in the vagina for 6 weeks. Call or return if temperature above 100.4? F, increased abdominal pain, increased vaginal bleeding or any new problems. Stand Alone Forms: General Discharge Instructions Follow-up/Referrals: Alan De Jesus MD [Physician] - 2 Weeks Discharge Medications: New oxycodone-acetaminophen [Percocet] 5-325 mg tablet 1 - 2 tablet PO Q6H PRN (Reason: pain) Qty: 30 0RF Continued bupropion HCl 150 mg tablet sustained-release 12 hr 150 mg PO BID Adult One Daily Multivitamin See Rx Instructions .ROUTE .COMPLEX Rx Instructions: Takes 1 daily in AM.
[2024-05-20 11:00] LABS: BEDSIDEPREGUCG Negative (Negative)
[2024-05-20] MEDS: HYDROmorphone HCL INJ (*CRX) 1 MG/ML SYR 0.5 MG IV PUSH (11:07)
--- NOTE | 2024-05-20 11:39 | OBPPTRN ---
Patient transferred to post room #289 via bed. Support person present. Oriented to unit, room, information board, rooming in, admission packet and security measures. Patient verbalizes understanding.
[2024-05-20] MEDS: DEXTROSE 5%/0.45% SOD CHL 1,000 ML 125 ML IV CONT (12:09)
[2024-05-20] MEDS: KETOROLAC 30 MG/ML VIAL (*BKC) IV PUSH ×2 (13:17→18:50)
[2024-05-20] MEDS: SIMETHICONE 80 MG TAB.CHEW PO ×2 (13:18→16:23)
[2024-05-20] MEDS: oxyCODONE HCL (*CRX) 5 MG TAB IR 10 MG PO (16:22)
[2024-05-20] MEDS: buPROPion HCL SR (12 HR) 150 MG TAB PO (16:23)
[2024-05-20] MEDS: DOCUSATE SODIUM 100 MG CAPSULE PO (16:23)
[2024-05-20] MEDS: ENOXAPARIN 40 MG/0.4 ML SYRINGE SUB-Q (18:50)
[2024-05-21 00:07] VITALS: BP 106/53; PULSE 66; RESP 14; TEMP 36.9; O2SAT 98
[2024-05-21] MEDS: ACETAMINOPHEN 500 MG TABLET 1000 MG PO ×2 (01:11→07:16)
[2024-05-21] MEDS: KETOROLAC 30 MG/ML VIAL (*BKC) IV PUSH (01:11)
[2024-05-21 03:45] VITALS: BP 97/64; PULSE 77; RESP 16; TEMP 36.9; O2SAT 99
[2024-05-21 04:58] LABS: Basophils Percent Auto 0.3 % (0.2-1.2); Eosinophils Percent Auto 0.1 % (0-4.4); Hematocrit 34.2 % (37.0-47.0); Hemoglobin 11.4 g/dL (12.0-15.0); Immature Granulocyte Absolute 0.08 K/mm3 (0.00-0.031); Immature Granulocyte Percent A 0.5 % (0-0.5); Lymphocytes Absolute Auto 2.72 K/mm3 (0.9-3.2); Lymphocytes Percent Auto 17.7 % (18.3-44.2); Mean Corpuscular HGB Conc 33.3 g/dl (32-36); Mean Corpuscular Volume 92.9 fl (80-100); Mean Platelet Volume 10.4 fl (7.4-10.4); Monocytes Absolute Auto 1.8 K/mm3 (0.1-0.6); Monocytes Percent Auto 11.7 % (2.6-8.5); Neutrophils Absolute Auto 10.7 K/mm3 (1.3-6.7); Neutrophils Percent Auto 69.7 % (45.5-73.1); Platelet Count Result 277 k/mm3 (150-375); Red Blood Count 3.68 M/mm3 (4.2-5.4); Red Cell Distribution Width 13.2 % (11.5-14.5); White Blood Count 15.3 K/mm3 (4.5-10.0)
[2024-05-21] MEDS: IBUPROFEN 600 MG TABLET PO (07:17)
[2024-05-21] MEDS: SIMETHICONE 80 MG TAB.CHEW PO (07:17)
[2024-05-21 07:21] VITALS: BP 108/68; PULSE 88; RESP 16; TEMP 36.9; O2SAT 98
[2024-05-21] MEDS: buPROPion HCL SR (12 HR) 150 MG TAB PO (09:40)
[2024-05-21] MEDS: DOCUSATE SODIUM 100 MG CAPSULE PO (09:40)
--- NOTE | 2024-05-21 10:31 | P.PNOB_ITS ---
PROTOTYPE ENGINEER - A/P Assessment and plan (1) Uterine fibroid: Code(s): D25.9 - Leiomyoma of uterus, unspecified Status: Acute Assessment and Plan: A: POD#1, doing well. P: Home to f/u 2 weeks. (2) Dysmenorrhea: Code(s): N94.6 - Dysmenorrhea, unspecified Status: Acute (3) Menometrorrhagia: Code(s): N92.1 - Excessive and frequent menstruation with irregular cycle Status: Acute Postoperative Procedures: Procedures Operation Date: 05/20/24 07:30 Actual Procedure Side Surgeon p Robotic Assisted Total Vaginal Hysterectomy with Bilateral Salpingectomy Bilateral Alan De Jesus MD Time Spent With Patient Time with patient: less than 15 minutes PROTOTYPE ENGINEER- PN:Subj Post-Op Subjective Date/time seen: 05/21/24 10:31 Interval history: Pain OK. Tolerating diet. Voiding. Would like to go home. Exam Narrative: AVSS I/O OK ABD soft, nontender. Incisions c/d/i. EXT nontender PROTOTYPE ENGINEER - PN: Obj Data Vital Signs Vital Signs: Vital Signs - 24 hr 05/20/24 10:45 05/20/24 10:55 05/20/24 11:00 Temperature Pulse Rate 98 84 Respiratory Rate 99 H 12 Blood Pressure 109/65 108/64 Pulse Oximetry 100 100 Oxygen Delivery Simple Face Mask Simple Face Mask Room Air Oxygen Flow Rate 8 8 05/20/24 11:10 05/20/24 11:21 05/20/24 12:00 Temperature 36.2 C L 37.2 C Pulse Rate 95 94 82 Respiratory Rate 12 12 14 Blood Pressure 110/71 110/67 108/68 Pulse Oximetry 100 100 99 Oxygen Delivery Room Air Room Air Oxygen Flow Rate 05/20/24 16:53 05/20/24 19:00 05/20/24 19:00 Temperature 36.9 C 36.7 C Pulse Rate 83 91 Respiratory Rate 12 18 Blood Pressure 94/61 L 105/67 Pulse Oximetry 96 100 Oxygen Delivery Room Air Oxygen Flow Rate 05/21/24 00:07 05/21/24 03:45 05/21/24 03:45 Temperature 36.9 C 36.9 C Pulse Rate 66 77 Respiratory Rate 14 16 Blood Pressure 106/53 L 97/64 L Pulse Oximetry 98 99 Oxygen Delivery Room Air Oxygen Flow Rate 05/21/24 07:21 Temperature 36.9 C Pulse Rate 88 Respiratory Rate 16 Blood Pressure 108/68 Pulse Oximetry 98 Oxygen Delivery Oxygen Flow Rate Intake/Output Intake/Output: Intake & Output 05/18/24 05/19/24 05/20/24 05/21/24 23:59 23:59 23:59 23:59 Intake Total 1999 Output Total 1435 400 Balance 565 -400 Meds/Results Medications: Active Medications Generic Name Dose Route Start Last Admin Trade Name Freq PRN Reason Stop Dose Admin Acetaminophen 1,000 mg 05/20/24 12:00 05/21/24 07:16 Acetaminophen 500 Mg Tablet PO 1,000 mg Q6HR J LUIS Administration Bupropion HCl 150 mg 05/20/24 17:00 05/21/24 09:40 Bupropion Hcl Sr (12 Hr) 150 Mg Tab PO 150 mg BID J LUIS Administration Docusate Sodium 100 mg 05/20/24 17:00 05/21/24 09:40 Docusate Sodium 100 Mg Capsule PO 100 mg BID J LUIS Administration Enoxaparin Sodium 40 mg 05/20/24 18:30 05/20/24 18:50 Enoxaparin 40 Mg/0.4 Ml Syringe SUB-Q 40 mg Q24H J LUIS Administration Dextrose/Sodium Chloride 1,000 mls @ 125 mls/hr 05/20/24 11:53 05/20/24 20:09 Dextrose 5% Sodium Chloride 0.45% IV CONT Infused .Q8H J LUIS Infusion Ibuprofen 600 mg 05/21/24 06:00 05/21/24 07:17 Ibuprofen 600 Mg Tablet PO 600 mg Q6HR J LUIS Administration Morphine Sulfate 4 mg 05/20/24 11:53 Morphine Sulfate (*Crx) 4 Mg/Ml Inj IV PUSH Q4H PRN Breakthrough Pain Rated 7-10 or NPO Naloxone HCl 0.1 mg 05/20/24 11:53 Naloxone Hcl 0.4 Mg/Ml Vial IV PUSH Q2M PRN Respiratory rate less than 10 Ondansetron HCl 4 mg 05/20/24 11:53 Ondansetron Inj 4 Mg/2 Ml Vial IV PUSH Q6H PRN Nausea Oxycodone HCl 5 mg 05/20/24 11:53 Oxycodone Hcl (*Crx) 5 Mg Tab Ir PO Q4H PRN Pain Rated 4-6 Oxycodone HCl 10 mg 05/20/24 11:53 05/20/24 16:22 Oxycodone Hcl (*Crx) 5 Mg Tab Ir PO 10 mg Q6H PRN Administration Pain Rated 7-10 Simethicone 80 mg 05/20/24 12:00 05/21/24 07:17 Simethicone 80 Mg Tab.Chew PO 80 mg TIDWM J LUIS Administration Labs 05/21/24 03:37 Labs: Laboratory Results - last 24 hr 05/20/24 05/21/24 06:00 03:37 WBC 15.3 H RBC 3.68 L Hgb 11.4 L Hct 34.2 L MCV 92.9 MCH 31.0 MCHC 33.3 RDW 13.2 Plt Count 277 MPV 10.4 Immature Gran % (Auto) 0.5 Neut % (Auto) 69.7 Lymph % (Auto) 17.7 L [place] % (Auto) 11.7 H Eos % (Auto) 0.1 Baso % (Auto) 0.3 Lymph # (Auto) 2.72 [place] # (Auto) 1.8 H Eos # (Auto) 0.0 Baso # (Auto) 0.0 Abs Immat Gran (auto) 0.08 H Absolute Neuts (auto) 10.7 H Absolute Nucleated RBC 0.000 Nucleated RBC % 0.0 POC Urine HCG, Qual Negative
== END 2024-05-21 11:08 | disposition home or self-care (01) ==
LOC: ANHSURGERY 10:27 → ANHOB2 12:14
PROVIDERS: Visit Provider Obstetrics & Gynecology
PROC: (CPT 58552; principal; 2024-05-20 07:30)
DX: N92.1 Excessive and frequent menstruation with irregular cycle (principal); G89.18 Other acute postprocedural pain; F41.9 Anxiety disorder, unspecified; Z98.890 Other specified postprocedural states; Z98.51 Tubal ligation status; Z98.891 History of uterine scar from previous surgery; Z80.6 Family history of leukemia
CPT/HCPCS: 58552; S2900; 36415; 85025; 88307; 99199; A9270; J0690; J1100; J1171; J1650; J1885; J2003; J2250; J2405; J2704; J3010; J7030; J7120